=== PATIENT | female | born 1945 | race African-American/Black ===

== ENCOUNTER 2023-03-31 17:10 | Emergency (ER) | payer MEDICARE, SELFPAY ==
--- NOTE | ~2023-03-31 | XR_ITS ---
EXAMINATION: XR ankle RT min 3V DATE: 03/31/2023 17:35 INDICATION: Right ankle pain post fall TECHNIQUE: Anteroposterior, oblique, mortise, and lateral views of the right ankle were obtained. COMPARISON: None. FINDINGS: Old healed fractures of the distal metadiaphyses of the right tibia and fibula which are fixed with p osterior plate and screw fixations. Additional interfragmentary screw at the fibular fracture. There is an additional retained screw fragment at the tibial plafond. Subtle linear lucency consistent with an acute nondisplaced fracture of the metaphyseal region of the distal fibula. No other fractures id entified. 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 Soft tissue swelling about the ankle most prominent laterally. IMPRESSION: 1. Acute appearing nondisplaced fractures of the metaphyseal region of the distal right fibula. Speci ficity is limited by the pre-existing internal fixation of prior old healed tibial and fibular metadi aphyseal fractures. Correlate for point tenderness on the lateral margin of the distal fibula approxi mately 4 similar proximal to the tip of the lateral malleolus. 2. 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 Reviewed, dictated and finalized at location A. IMPRESSION: 1. Acute appearing nondisplaced fractures of the metaphyseal region of the dist al right fibula. Specificity is limited by the pre-existing internal fixation o f prior old healed tibial and fibular metadiaphyseal fractures. Correlate for p oint tenderness on the lateral margin of the distal fibula approximately 4 esther lar proximal to the tip of the lateral malleolus. 2. 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
[2023-03-31 17:25] VITALS: BP 124/77; PULSE 69; RESP 20; TEMP 36.9; O2SAT 96
--- NOTE | 2023-03-31 19:53 | ED.GENADULT ---
HPI - General Adult General Chief complaint: Extremity Injury, Lower Stated complaint: right ankle Time Seen by Provider: 03/31/23 18:56 History of Present Illness HPI narrative: Patient is a 77-year-old female who presents ER with right ankle pain. She was transferring from the toilet to her wheelchair when she twisted her ankle. Sudden onset pain over the lateral right ankle. She has history of previous fracture to the area with known hardware. She did not fall. No numbness or tingling. Has pain with trying to bear weight. Patient has chronic right-sided weakness from previous stroke. Review of Systems Musculoskeletal: Musculoskeletal: Reports arthralgias, Reports joint swelling and Denies muscle cramps Integumentary/Breasts: Skin/Breast: Denies erythema and Denies rash Neurologic: Denies focal weakness and Denies numbness PMFSH Past Medical History Medical History (Updated 03/31/23 @ 19:59 by Fortino De Dios MD) Diabetes History of CVA (cerebrovascular accident) Hyperlipidemia Hypertension Surgical History Surgical History (Updated 03/31/23 @ 19:54 by Fortino De Dios MD) History of ankle surgery Exam Narrative: GENERAL: Well-appearing, well-nourished, and in no acute distress. HEAD: Normocephalic, atraumatic. CHEST: Clear to auscultation. No respiratory distress. HEART: Regular rate and rhythm. Normal peripheral pulses. EXTREMITIES: Normal range of motion. No edema. Tender to palpation right lateral malleolus proximal to the ankle. SKIN: Warm, dry, no rash. NEURO: Alert and oriented x3. PSYCH: Normal mood and affect. Course Course Emergency Course: Area of tenderness consistent with area of potential fracture on x-ray. Patient and son informed of diagnosis and treatment plan. Patient placed in a stirrup splint and will be toe-touch weightbearing. Interesting patient will mainly be confined to a wheelchair. Vital Signs Vital signs: Vital Signs Temperature 98.5 F 03/31/23 17:25 Pulse Rate 69 03/31/23 17:25 Respiratory Rate 20 03/31/23 17:25 Blood Pressure 124/77 03/31/23 17:25 Pulse Oximetry 96 03/31/23 17:25 Temperature 98.5 F 03/31/23 17:25 Pulse Rate 69 03/31/23 17:25 Respiratory Rate 20 03/31/23 17:25 Blood Pressure 124/77 03/31/23 17:25 Pulse Oximetry 96 03/31/23 17:25 Medical Decision Making Vital Signs Vital Signs: Vital Signs Temperature 98.5 F 03/31/23 17:25 Pulse Rate 69 03/31/23 17:25 Respiratory Rate 20 03/31/23 17:25 Blood Pressure 124/77 03/31/23 17:25 Pulse Oximetry 96 03/31/23 17:25 Temperature 98.5 F 03/31/23 17:25 Pulse Rate 69 03/31/23 17:25 Respiratory Rate 20 03/31/23 17:25 Blood Pressure 124/77 03/31/23 17:25 Pulse Oximetry 96 03/31/23 17:25 Imaging Data Radiologist's impression: ITS Impressions Ankle X-Ray 03/31/23 18:08 IMPRESSION: 1. Acute appearing nondisplaced fractures of the metaphyseal region of the distal right fibula. Specificity is limited by the pre-existing internal fixation of prior old healed tibial and fibular metadiaphyseal fractures. Correlate for point tenderness on the lateral margin of the distal fibula approximately 4 similar proximal to the tip of the lateral malleolus. 2. 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 Discharge Plan Discharge Clinical Impression: Ankle fracture Patient Disposition: Home, Self-Care Condition: Stable Instructions: Ankle Fracture (ED) Additional Instructions: Return the ER if you suffer new injury, you have increased pain, you have additional concerns. Follow-up/Referrals: PHYSICIAN,LANGUAGE PATH [Primary Care Provider] - Lester Howell MD [Physician] - 1 Week
[2023-03-31 20:44] VITALS: BP 121/74; PULSE 71; RESP 16; O2SAT 99
== END 2023-03-31 20:45 | disposition home or self-care (01) ==
PROVIDERS: Emergency Provider Emergency Medicine
DX: S82.831A Other fracture of upper and lower end of right fibula, initial encounter for closed fracture (principal); X50.0XXA Overexertion from strenuous movement or load, initial encounter; E11.9 Type 2 diabetes mellitus without complications; I10 Essential (primary) hypertension; E78.5 Hyperlipidemia, unspecified
CPT/HCPCS: 29515; 73610; 99284

== ENCOUNTER 2023-07-28 09:31 | Outpatient (CLI) | payer MEDICARE, SELFPAY ==
[2023-07-28 19:18] LABS: Alanine Aminotransferase 27 U/L (6-35); Albumin Level 4.4 g/dL (3.5-5.1); Alkaline Phosphatase 72 U/L (38-126); Anion Gap 9 mmol/L (8-16); Aspartate Amino Transferase 36 U/L (14-36); Bilirubin,Total 0.3 mg/dL (0.2-1.3); Blood Urea Nitrogen 35 mg/dL (7-17); Calcium 9.8 mg/dL (8.4-10.2); Carbon Dioxide 24 mmol/L (22-30); Chloride 104 mmol/L (98-107); Cholesterol 177 mg/dL (0-200); Estimated Glomerular Filt Rate 38; Glucose 164 mg/dL (65-110); HDL Direct 64 mg/dL; Potassium 4.3 mmol/L (3.4-5.0); Sodium 137 mmol/L (137-145); Triglycerides 72 mg/dL (<150)
[2023-07-28 19:24] LABS: Basophils Absolute Auto 0.1 K/mm3 (0.0-0.1); Basophils Percent Auto 0.6 % (0.2-1.2); Eosinophils Absolute Auto 0.1 K/mm3 (0-0.3); Hematocrit 36.6 % (37.0-47.0); Hemoglobin 11.5 g/dL (12.0-15.0); Immature Granulocyte Absolute 0.02 K/mm3 (0.00-0.031); Immature Granulocyte Percent A 0.2 % (0-0.5); Lymphocytes Percent Auto 39.8 % (18.3-44.2); Mean Corpuscular HGB Conc 31.4 g/dl (32-36); Mean Corpuscular Hemoglobin 26.6 pg (26-34); Mean Corpuscular Volume 84.5 fl (80-100); Mean Platelet Volume 10.9 fl (7.4-10.4); Monocytes Absolute Auto 0.6 K/mm3 (0.1-0.6); Monocytes Percent Auto 6.4 % (2.6-8.5); Neutrophils Absolute Auto 4.6 K/mm3 (1.3-6.7); Platelet Count Result 222 k/mm3 (150-375); Red Blood Count 4.33 M/mm3 (4.2-5.4); Red Cell Distribution Width 14.9 % (11.5-14.5); White Blood Count 8.8 K/mm3 (4.5-10.0)
[2023-07-28 19:28] LABS: LDL Cholesterol Direct 68 mg/dL
[2023-07-28 19:49] LABS: Thyroid Stimulating Hormone 0.506 uIU/mL (0.465-4.680)
== END 2023-07-28 09:32 | disposition home or self-care (01) ==
PROVIDERS: PCP Family Medicine; Visit Provider Nurse Practitioner Family
DX: I10 Essential (primary) hypertension (principal); Z13.29 Encounter for screening for other suspected endocrine disorder; Z13.220 Encounter for screening for lipoid disorders; Z13.1 Encounter for screening for diabetes mellitus; Z13.21 Encounter for screening for nutritional disorder
CPT/HCPCS: 36415; 80053; 80061; 83036; 84443; 85025

== ENCOUNTER 2023-12-08 15:16 | Outpatient (CLI) | payer MEDICARE, SELFPAY ==
--- NOTE | ~2023-12-08 | MM_ITS ---
EXAMINATION: MM screening benjamin BI w javier HISTORY: Screening mammogram TECHNIQUE: Craniocaudal and mediolateral oblique 3-D tomosynthesis images were obtained and synthetic 2-D images were generated. CAD analysis was submitted and interpreted. COMPARISON: No prior mammogram is available for comparison at this institution. BREAST PARENCHYMAL COMPOSITION: There are scattered areas of fibroglandular density. FINDINGS: RIGHT BREAST: No suspicious mass, calcification, or architectural distortion are identified to sugges t malignancy. LEFT BREAST: There is a possible mass in the middle third of the outer breast 8 cm from the nipple. IMPRESSION: 1. Possible left breast mass which may represent the patient's baseline however no comparison is curr ently available. 2. Comparison with prior mammograms is necessary. BI-RADS Category 0: Incomplete: Needs comparison with prior mammograms. Reviewed, dictated and finalized at location A. DAY BABYSITTER IMPRESSION: 1. Possible left breast mass which may represent the patient's baseline however no comparison is currently available. 2. Comparison with prior mammograms is necessary. BI-RADS Category 0: Incomplete: Needs comparison with prior mammograms.
== END 2023-12-08 15:17 | disposition home or self-care (01) ==
PROVIDERS: PCP Family Medicine; Visit Provider Nurse Practitioner Family
DX: Z12.31 Encounter for screening mammogram for malignant neoplasm of breast (principal); R92.8 Other abnormal and inconclusive findings on diagnostic imaging of breast
CPT/HCPCS: 77063; 77067

== ENCOUNTER 2024-02-02 11:03 | Outpatient (CLI) | payer MEDICARE, SELFPAY ==
[2024-02-02 12:54] LABS: Basophils Percent Auto 0.5 % (0.2-1.2); Eosinophils Absolute Auto 0.1 K/mm3 (0-0.3); Eosinophils Percent Auto 0.9 % (0-4.4); Hematocrit 37.4 % (37.0-47.0); Hemoglobin 11.6 g/dL (12.0-15.0); Immature Granulocyte Absolute 0.01 K/mm3 (0.00-0.031); Immature Granulocyte Percent A 0.1 % (0-0.5); Lymphocytes Absolute Auto 3.16 K/mm3 (0.9-3.2); Lymphocytes Percent Auto 41.3 % (18.3-44.2); Mean Corpuscular Hemoglobin 26.2 pg (26-34); Mean Corpuscular Volume 84.4 fl (80-100); Mean Platelet Volume 11.5 fl (7.4-10.4); Monocytes Absolute Auto 0.4 K/mm3 (0.1-0.6); Monocytes Percent Auto 5.4 % (2.6-8.5); Neutrophils Percent Auto 51.8 % (45.5-73.1); Platelet Count Result 191 k/mm3 (150-375); Red Blood Count 4.43 M/mm3 (4.2-5.4); Red Cell Distribution Width 14.1 % (11.5-14.5); White Blood Count 7.7 K/mm3 (4.5-10.0)
[2024-02-02 13:08] LABS: Alanine Aminotransferase 24 U/L (6-35); Albumin Level 4.2 g/dL (3.5-5.1); Alkaline Phosphatase 81 U/L (38-126); Anion Gap 6 mmol/L (8-16); Aspartate Amino Transferase 36 U/L (14-36); Bilirubin,Total 0.3 mg/dL (0.2-1.3); Blood Urea Nitrogen 24 mg/dL (7-17); Calcium 9.8 mg/dL (8.4-10.2); Carbon Dioxide 24 mmol/L (22-30); Chloride 107 mmol/L (98-107); Estimated Glomerular Filt Rate 48; Glucose 162 mg/dL (65-110); Sodium 137 mmol/L (137-145)
[2024-02-02 13:44] LABS: Vitamin D 25 Hydroxy 41.4 ng/mL
[2024-02-05 23:15] LABS: Vitamin D 1,25 (OH)2 Total 21 pg/mL (18-72); Vitamin D2 1,25 (OH)2 21 pg/mL; Vitamin D3 1,25 (OH)2 <8 pg/mL
== END 2024-02-02 11:04 | disposition home or self-care (01) ==
LOC: ANHGOSHLAB 11:04
PROVIDERS: Nurse Practitioner Family; PCP Family Medicine; Visit Provider Nurse Practitioner Family
DX: R79.89 Other specified abnormal findings of blood chemistry (principal); Z13.21 Encounter for screening for nutritional disorder; E55.9 Vitamin D deficiency, unspecified; I10 Essential (primary) hypertension
CPT/HCPCS: 36415; 80053; 82306; 82652; 83036; 85025

== ENCOUNTER 2024-08-04 11:26 | Outpatient (CLI) | payer MEDICARE, SELFPAY ==
[2024-08-04 18:51] LABS: Basophils Absolute Auto 0.1 K/mm3 (0.0-0.1); Basophils Percent Auto 0.6 % (0.2-1.2); Eosinophils Absolute Auto 0.1 K/mm3 (0-0.3); Eosinophils Percent Auto 1.6 % (0-4.4); Hemoglobin 11.4 g/dL (12.0-15.0); Immature Granulocyte Absolute 0.01 K/mm3 (0.00-0.031); Immature Granulocyte Percent A 0.1 % (0-0.5); Lymphocytes Absolute Auto 4.07 K/mm3 (0.9-3.2); Lymphocytes Percent Auto 49.9 % (18.3-44.2); Mean Corpuscular HGB Conc 31.7 g/dl (32-36); Mean Corpuscular Hemoglobin 26.9 pg (26-34); Mean Corpuscular Volume 84.9 fl (80-100); Mean Platelet Volume 10.9 fl (7.4-10.4); Monocytes Absolute Auto 0.4 K/mm3 (0.1-0.6); Monocytes Percent Auto 5.3 % (2.6-8.5); Neutrophils Absolute Auto 3.5 K/mm3 (1.3-6.7); Neutrophils Percent Auto 42.5 % (45.5-73.1); Platelet Count Result 206 k/mm3 (150-375); Red Blood Count 4.24 M/mm3 (4.2-5.4); Red Cell Distribution Width 14.8 % (11.5-14.5); White Blood Count 8.2 K/mm3 (4.5-10.0)
[2024-08-04 20:09] LABS: Alanine Aminotransferase 26 U/L (6-35); Alkaline Phosphatase 73 U/L (38-126); Anion Gap 11 mmol/L (4-12); Aspartate Amino Transferase 36 U/L (14-36); Bilirubin,Total 0.2 mg/dL (0.2-1.3); Blood Urea Nitrogen 22 mg/dL (7-17); Calcium 9.3 mg/dL (8.4-10.2); Carbon Dioxide 22 mmol/L (22-30); Chloride 105 mmol/L (98-107); Cholesterol 204 mg/dL (0-200); Estimated Glomerular Filt Rate 48; Glucose 144 mg/dL (65-110); HDL Direct 71 mg/dL; Sodium 138 mmol/L (137-145); Triglycerides 101 mg/dL (<150)
[2024-08-04 20:26] LABS: LDL Cholesterol Direct 83 mg/dL
[2024-08-04 20:35] LABS: Hemoglobin A1C 7.6 % (<5.7)
== END 2024-08-04 11:27 | disposition home or self-care (01) ==
LOC: ANHGOSHLAB 11:27
PROVIDERS: PCP Family Medicine; Visit Provider Nurse Practitioner Family
DX: E11.9 Type 2 diabetes mellitus without complications (principal); I10 Essential (primary) hypertension; E78.5 Hyperlipidemia, unspecified; Z00.00 Encounter for general adult medical examination without abnormal findings
CPT/HCPCS: 36415; 80053; 80061; 83036; 84443; 85025

== ENCOUNTER 2025-05-19 23:45 | Emergency (ER) | payer MEDICARE, SELFPAY ==
--- NOTE | ~2025-05-19 | CT_ITS ---
CLINICAL INDICATION: Right lower quadrant pain COMPARISON: None. TECHNIQUE: Multiple contiguous axial images of the abdomen and pelvis were performed following the ad ministration of with 100 mL Omnipaque-350 intravenous contrast The dose-length product (DLP) was 821.44 mGy-cm. Automated exposure control and iterative reconstruction technique were employed. FINDINGS/OBSERVATIONS: Visualized lower thorax: The bilateral lung bases are clear. The heart is of normal size, without pericardial effusion. Small hiatal hernia is present. Liver: Well-circumscribed, fluid attenuation focus within segment 2 of the liver measuring 3.7 x 3.1 x 4.4 cm, likely a cyst. The remainder of the liver demonstrates otherwise homogeneous enhancement and is not enlarged. Gallbladder and biliary system: The gallbladder is only minimally distended, and otherwise unremarkable. Pancreas: The pancreas enhances homogeneously without ductal dilatation. Spleen: The spleen enhances homogeneously and is not enlarged. Kidneys: The bilateral kidneys enhance symmetrically without hydronephrosis or renal calculi. Adrenal glands: Unremarkable. Gastrointestinal tract: Fecal stasis within the colon. Fecal stasis within the rectum with mural thickening suggesting fecal impaction. Appendix: The air-filled appendix is of normal caliber (axial series, images 95 through 106) Vasculature: Calcified atherosclerotic disease.. Lymph nodes: No pathologically enlarged or morphologically suspicious lymph nodes within the retroperitoneum or at the root of the mesentery. Pelvic structures: The bladder is minimally distended, and otherwise unremarkable. The uterus is anteverted, anteflexed, nodular and markedly enlarged for a patient of this age. Scattered calcifications are also noted suggesting prior fibroid disease. The bilateral ovaries are not definitively visualized. Body wall and musculoskeletal: Small fat-containing umbilical hernia. No significant degenerative disease within the lower thoracic or lumbosacral spine. IMPRESSION: Normal appendix. Marked enlargement (for patient of this age) of the nodular uterus with scattered calcifications sugg esting prior fibroid disease. Additional findings suggesting fecal impaction, as detailed above. Reviewed, dictated and finalized at location A. IMPRESSION: Normal appendix. Marked enlargement (for patient of this age) of the nodular uterus with scatter ed calcifications suggesting prior fibroid disease. Additional findings suggesting fecal impaction, as detailed above.
--- OUTSIDE RECORDS SUMMARY | 2025-05-19 23:47 | XMS_ITS | Continuity of Care Document ---
Author Organization [facility] Address [address] [place] [address] Phone Care Team Providers Care Plant Maintenance Mechanic Name Role Phone Kishore Ayala DDS Unavailable Unavailable Medications Medication Instructions Dosage Effective Dates (start - stop) Status Comments clindamycin 150 mg Cap take 1 Capsule by Oral route 4 times every day with meals 1.00 Capsule - Active Tylenol-Codeine #3 300 mg-30 mg Tab take 1 tablet by ORAL route every 4 hours for pain 1.00 tablet - Active Procedures Procedure Date Periapical first film Limit oral eval problem focused 010 Surgical extr erupted tooth Advance Directives Directive Yes / No Effective Date File Name No Information Encounters Encounter Description Practice Location Reason(s) For Visit Diagnoses Date Provider Providers Copied on Encounter [facility] , [address], [place], [place], [id number], [place] tel:[phone] [facility] No Information Jamie Novak. [address], [place], [place], [address], [place]. tel:[phone] Family History Family Member Type Diagnosis Age At Onset No Information Payers Payer name Insurance type Covered constitution party ID Authoryinga tijustin(s) D Medicaid - Dental CI [id number] Social History Type Description Quantity Date Captured Comments Sex Female Smoking Status No Information Chief Complaint And Reason For Visit No Information Reason For Referral Reason For Referral No Information History Of Present Illness Encounter Date Complaint History Of Prese nt Illness No Information Functional Status Date Functional Assessmen t No Information Instructions Date Instruction Additional Infor mation No Information Assessments Type Assessment Date No Information Patient Care Teams Name Effective Dates (start - stop) Status Members No Information
--- OUTSIDE RECORDS SUMMARY | 2025-05-19 23:47 | XMS_ITS | Clinical Summary ---
Author Organization [facility] Address [address] [place] [address] Care Team Providers Care Head Control Clerk Name Role Phone Todd Fink MD Unavailable Unavailable Pcp, [facility] Im- Primary Care Provider Unavailable Tejas Maradiaga MD Unavailable [phone] Source Comments [facility],non-owned Affiliates and Associated Physician Practices is amultiple site organization consisting of ambulatory clinics and hospital sitesin [place], [place], [place] and [place]. This disclosure is being madepursuant to the Care Everywhere program and may not contain all information available regarding this patient. Last updated 18.[facility] Allergies No known active allergies Medications * Be aware that medications may not be up to date on this document. Alwaysverify current medications with the patient. hydrOXYzine pamoate (VISTARIL) 25 MG capsule TAKE 1 TO 2 CAPSULES BY MOUTH EVERY 6 HOUR (S) NEEDED 120 Cap 0 4 Active cetirizine (ZYRTEC) 10 MG tablet Take 1 Tab by mouth once daily as needed for Runny Nose or Allergies. 30 Tab 1 5 Active Blood Glucose Monitoring Suppl (ONE TOUCH ULTRA 2) W/DEVICE KIT 5 Active nortriptyline (PAMELOR) 10 MG capsule Take 1 Cap by mouth at bedtime 30 Cap 5 5 Active acetaminophen (TYLENOL) 500 MG capsule Take 1 capsule by mouth every 4 hours as needed for Fever or Pain 8 Active Blood Glucose Monitoring Suppl (ONETOUCH VERIO) W/DEVICE KIT Use 1 Each as directed 1 kit 8 Active STIMULANT LAXATIVE 5 MG tablet TAKE 2 TABLETS BY MOUTH EVERY 8 HOURS NEEDED FOR CONSTIPATION 60 tablet 8 Active blood glucose (ONETOUCH VERIO) test strip Use once daily DX:E11.22 100 strip 2 9 Active Lancets (BrightEdgeTOUCH DELICA PLUS 33G EXTRA FINE LANCET) Use to test once daily. 100 Each 2 9 Active gabapentin (NEURONTIN) 100 MG capsule TAKE 3 CAPSULES BY MOUTH AT BEDTIME 540 capsule 1 0 Active aspirin EC (ECOTRIN) 81 MG tablet Take 1 tablet by mouth once daily 90 tablet 1 0 Active fluticasone propionate (FLONASE) 50 MCG/ACT nasal spray Point Comfort 1 spray into each nostril once daily 48 g 1 1 Active Blood Glucose Monitoring Suppl (BrightEdgeTOUCH ULTRALINK) w/Device KIT Use 1 Each as directed 1 kit 1 Active diclofenac sodium (Voltaren) 1 % gel Apply 2 (two) g to affected area 4 times daily 2 gm amount for elbow, wrist or hand 4 gm amount for knee, ankle or foot 150 g 5 2 Active tiZANidine (Zanaflex) 4 MG tablet TAKE ONE TABLET BY MOUTH UP TO EVERY 8 HOURS NEEDED SPASMS 270 tablet 3 Active omeprazole (PriLOSEC) 20 MG capsule TAKE 1 CAPSULE BY MOUTH ONCE DAILY EVERY MORNING BEFORE MEALS 90 capsule 1 3 Active vitamin D, ergocalciferol, (Drisdol) 1.25 MG (82597 UT) capsule TAKE 1 (ONE) CAPSULE BY MOUTH EVERY 7 DAYS 12 capsule 1 3 Active lisinopril-hydr oCHLOROthiazide (Prinzide; Zestoretic) 10-12.5 MG tablet TAKE ONE TABLET BY MOUTH ONCE DAILY FOR BLOOD PRESSURE EVERY MORNING 90 tablet 3 Active glipiZIDE (Glucotrol) 5 MG tablet TAKE ONE TABLET BY MOUTH ONCE DAILY EVERY MORNING WITH FOOD DIRECTED 90 tablet 3 Active pravastatin (Pravachol) 40 MG tablet TAKE ONE TABLET BY MOUTH EVERY DAY AT BEDTIME DIRECTED 90 tablet 3 Active Active Problems Problem Noted Date Diagnosed Date Primary osteoarthritis involving multiple joints 03/13/2021 Elevated d-dimer 08/05/2018 Chest pain 08/05/2018 DJD (degenerative joint disease) 12/14/2014 Overview (12/14/2014): Shoulder, knees CKD (chronic kidney disease) stage 3, GFR 30-59 ml/min 12/14/2014 Overview (08/05/2018): GFRs<60 since 2013 Tibia/fibula fracture 04/21/2014 Overview (04/21/2014): S/p ORIF 12/10/13 [facility] Hypertension with CKD 3 02/15/2014 Type 2 diabetes mellitus wit h stage 3 chronic kidney disease 02/15/2014 Left hemiparesis 02/15/2014 Overview (05/05/2014): 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 Intolerant to lipitor. Trial pravachol 04/2014 Immunizations Immunization Administration Dates Next Due COVID PFIZER BIVALENT 12Y+ 30mcg/0.3ML Covid Pfizer primary Monoval ent 12+ yr 0.3ml 05/02/2022 Covid Pfizer primary monoval ent 12+ yr 0.3mL Purple cap 02/14/2021,01/23/2021 INFLUENZA VACCINE 09/02/2016 INFLUENZA VACCINE, ADJUVANTE D, QUADR. (FLUAD QUADRIVALENT; 65Y+) (AIIV4) 11/14/2022 INFLUENZA VACCINE, CELL CULT URE, QUADR. (FLUCELVAX QUADRIVALENT; 6MO+) (CCIIV4) 09/26/2021 INFLUENZA VACCINE, HIGH-DOSE , QUADR. (FLUZONE HIGH-DOSE QUADRIVALENT; 65Y+), 0.7 ML (HD-IIV4) 09/02/2016 INFLUENZA VACCINE, QUADR. (F LUZONE; FLULAVAL; FLUARIX; AFLURIA QUADRIVALENT; 6MO+), 0.5 ML (IIV4) 12/08/2015 PNEUMOCOCCAL PPSV23 05/05/2014 Pneumococcal Pcv13 Conj 04/18/2016 TDAP (7yrs+) 01/03/2017 iNFLUENZA VACCINE, RECOM-LAIRD, QUADR. (FLUBLOCK QUADRIVALENT; 18Y+) (RIV4) 09/12/2020,09/15/2019,08/12/2018 Family History Medical History Relation Name Comments Diabetes Brother 1 Diabetes Brother 2 Diabetes Brother 3 Diabetes Brother 4 Hypertension Brother 5 Cancer Father lung, smoker Hypertension Father Arthritis Mother Diabetes Mother Hypertension Mother Diabetes Sister 1 Hypertension Sister 2 Relation Name Status Comments Brother 1 Brother 2 Brother 3 Brother 4 Brother 5 Father Mother Sister 1 Sister 2 Social History Tobacco Use Types Packs/Day Years Used Date Smoking Tobacco: Never Smokeless Tobacco: Never Tobacco Cessation:Counseling Given: Yes Alcohol Use Standard Drinks/Week Comments No 0 (1 standard drink = 0.6 oz pur e alcohol) PHQ-2 Answer Date Recorded PHQ2 TOTAL SCORE 0 11/14/2022 Comments No Sex and Gender Information Value Date Recorded Sex Assigned at Not on file Legal Sex Female 7:13 AM MEAT COOLER Gender Identity Not on file Sexual Orientation Not on file Last Filed Vital Signs Vital Sign Reading Time Taken Comments Blood Pressure 122/80 11/14/2022 10:45 AM MEAT COOLER Pulse 75 11/14/2022 10:45 AM MEAT COOLER Temperature 37.1 C (98.8 F) 11/14/2022 10:45 AM MEAT COOLER Respiratory Rate 16 11/07/2020 1:03 PM MEAT COOLER Oxygen Saturation 98% 11/14/2022 10:45 AM MEAT COOLER Inhaled Oxygen Concentration - - Weight 74 kg (163 lb 3.2 oz) 11/14/2022 10:45 AM MEAT COOLER Height 152.4 cm (5') 11/14/2022 10:45 AM MEAT COOLER Body Mass Index 31.87 11/14/2022 10:45 AM MEAT COOLER Plan of Treatment Health Maintenance Due Date Last Done Comments ZOSTER VACCINE (1 of 2) 1993 Respiratory Syncytial Virus (RSV) Vaccine Pt: or over 60 yrs (1 - 1-dose 75+ series) 2018 DIABETES-FOOT EXAM WITH MONOFILAMENT 04/17/2019 04/17/2018, 04/17/2018, 05/05/2014 DIABETES RETINOPATHY SCREENING 08/12/2020 08/12/2018, 10/22/2017, 10/22/2017 (Done Outside Per Report), Additional history exists DIABETES-HGB A1C 05/15/2023 11/14/2022, , 09/26/2021, Additional history exists DIABETES-SERUM CREATININE 11/14/20232021, 09/26/2021, 09/12/2020, Additional history exists COVID-19 VACCINE ( season) 2024 11/14/2022, 05/02/2022, 02/14/2021, Additional history exists DEPRESSION SCREENING 11/17/2024 05/02/2022 DIABETES - URINE PROTEIN SCREENING 11/17/2024 09/02/2016, 07/28/2015, 02/14/2014 MEDICARE AWV CALENDAR YEAR 2024 05/02/2022, 09/26/2021, 03/13/2021, Additional history exists INFLUENZA VACCINE (Season Ended) 2025 11/14/2022, 09/26/2021, 09/12/2020, Additional history exists DTAP/TDAP/TD VACCINES (2 - Td or Tdap) 01/03/2027 01/03/2017 BONE DENSITY TESTING Completed 04/17/2015 PNEUMOCOCCAL VACCINE 50+ Completed 04/18/2016, 04/17 HEPATITIS B VACCINE Aged Out No longe r eligible based on patient's age to complete this topic HIB VACCINE Aged Out No longer eligi ble based on patient's age to complete this topic HPV VACCINE Aged Out No longer eligi ble based on patient's age to complete this topic MENINGOCOCCAL (Group B) VACCINE SHARED DECISION-MAKING Aged Out No longer eligible based on patient's age to complete this topic MENINGOCOCCAL GROUPS A/C/Y/W VACCINE Aged Out No longer eligible based on patient's age to complete this topic Goals Goal Patient Goal Type Associated Problems Recent Progress Patient-Stated? Author Lack of transportation Barrier No Patricia Fox RN Mulitple chronic diseases Barrier No Patricia Fox RN Needs assistance with ADL's Barrier No Patricia Fox RN Blood Pressure < 150/90 Blood Pressure 122/80(11/14 10:45 AM MEAT COOLER) No Nidhi Hernandez MA Right level of care at the right time. General On track(2017 10:15 AM CDT) Yes Patricia Fox RN Note: Silvia to call the doctor if she has an increased temperature (greater than 101), unrelieved pain, symptoms that are not relieved or worsening, and side effects of medications. Progress toward goal attainment: 0% : Ongoing / No progress Barriers to goal attainment: HEMOGLOBIN A1C < 7.0 Result Component 7.2(02/15/20 14 9:36 AM CDT) Nidhi Lerma MA Strength - Stable Housing Strength No Valencia Soriano RN Able to maintain independent living Strength No Valencia Soriano RN Strength - Transportation Strength No Valencia Soriano RN Symptoms do not interfere with function Strength No Valencia Soriano RN Health Literacy Strength No Valencia Soriano RN Medical Devices Implanted Type Area Board Layer Device Identifier Shelf Expiration Date Model / Serial / Lot Implt Lens Akreos 21.0 - [id number] Implanted:Qty: 1 on 06/30/2014 by Todd Fink MD at [facility] Right: Eye [employer] 04/16/2016 AO60G 21.0 / [id number] / [id number] Implt Lens Akreos 22.0 - [id number] Implanted:Qty: 1 on 08/18/2014 by Todd Fink MD at [facility] Left: Eye [employer] 04/16/2017 AO60G 22.0 / [id number] / Procedures Procedure Name Priority Date/Time Associated Diagnosis Comments COMPREHENSIVE METABOLIC PANEL Routine 11/14/2022 11:38 AM MEAT COOLER Mixed hyperlipidemia HEMOGLOBIN A1C - POINT OF CARE (AMB) Routine 11/14/2022 11:01 AM MEAT COOLER Type 2 diabetes mellitus with stage 3a chronic kidney disease, without long-term current use of insulin HM DIABETES EYE EXAM Routine 08/12/2018 MICROALB/CREAT RATIO URINE RANDOM PANEL Routine 09/02/2016 12:08 PM CDT Type 2 diabetes mellitus with stage 3 chronic kidney disease, without long-term current use of insulin DEXA BONE DENSITY 2 SITES Routine 04/17/2015 9:48 AM CDT Screening for osteoporosis from Last 3 Months or Most Recently Relevant to Health Maintenance Results * (ABNORMAL) COMPREHENSIVE METABOLIC PANEL (11/14/2022 11:38 AM MEAT COOLER) Glucose 120(H) 70 - 105 mg/dL [facility] ACCOUNT BILL BUN 27(H) 9.8 - 20.1 mg/dL [facility] ACCOUNT BILL Creatinine 1.35(H) 0.57 - 1.11 mg/dL [facility] ACCOUNT BILL eGFR by CKD-EPI 40(L) >=90 mL/min/1.7 3 m2 [facility] ACCOUNT BILL Sodium 139 136 - 145 mmol/L [facility] ACCOUNT BILL Potassium 4.0 3.5 - 5.1 mmol/L [facility] ACCOUNT BILL Chloride 105 98 - 107 mmol/L [facility] ACCOUNT BILL CO2 22(L) 23 - 31 mmol/L [facility] ACCOUNT BILL Calcium 10.0 8.4 - 10.4 mg/dL [facility] ACCOUNT BILL Protein Total 7.6 6.4 - 8.3 gm/dL [facility] ACCOUNT BILL Albumin 4.0 3.2 - 4.6 gm/dL [facility] ACCOUNT BILL Bilirubin Total 0.3 0.2 - 1.2 mg/dL [facility] ACCOUNT BILL Alkaline Phosphatase 81 40 - 150 U/L [facility] ACCOUNT BILL AST 17 5 - 34 U/L [facility] ACCOUNT BILL ALT 20 0 - 61 U/L [facility] ACCOUNT BILL Blood BLOOD SPECIMEN / Unknown 11/14/2022 11:38 AM MEAT COOLER 11/14/2022 Narrative Resulting Agency Comment Lab Testing performed at: [facility] [address] [place] [id number] Kayden Barry MD LAB - CHEMISTRY ORDERABLES Final Result [facility] ACCOUNT BILL [address] [place] [address] * HEMOGLOBIN A1C - POINT OF CARE (HgbA1C) (11/14/2022 11:01 AM MEAT COOLER) Pathologist [facility] Hemoglobin A1c POCT 7.3 % [facility] Expiration Date 09/02/[address] [facility] Lot # [id number] [facility] QC Verified Yes Yes [facility] Blood BLOOD SPECIMEN / Unknown 11/14/2022 11:01 AM MEAT COOLER Kayden Barry MD LAB - POINT OF CARE ORDERABLES F inal Result [facility] [address] [place] [address], [facility] [phone] * DIABETES EYE EXAM (08/12/2018) us Provider Unknown HEALTH MAINTENANCE Final Result * MICROALB/CREAT RATIO URINE RANDOM PANEL (09/02/2016 12:08 PM CDT) Creatinine Urine 145.4 Not Estab. mg/dL [facility] ACCOUNT BILL Microalbumin Urine 12.4 Not Estab. ug/mL [facility] ACCOUNT BILL Microalbumin/Crea tinine Ratio 8.5 0.0 - 30.0 mg/g creat [facility] ACCOUNT BILL Urine URINE SPECIMEN OBTAINED BY CLEAN CATCH PROCEDURE / Unknown 09/02/2016 12:08 PM CDT 09/02/2016 8:22 PM CDT Narrative Resulting Agency Comment [facility] [address] [phone] Kayden Barry MD LAB - URINE CHEMISTRY ORDERABLES Final Result Performing Organization Address City/[facility]/ZIP Co de Phone Number [facility] ACCOUNT BILL [address] [place] [address] * DEXA BONE DENSITY 2 SITES (04/17/2015 9:48 AM CDT) Anatomical Region Laterality Modality Nuclear Medicine 04/17/2015 9:48 AM CDT Narrative 04/17/2015 10:10 AM CDT BONE DENSITY STUDY History: Screening for osteoporosis. There is normal bone density in the lumbar spine and left hip. There is osteopenia of the right hip with a T score value of 1.5 standard deviations below normal. DIAGNOSIS: Osteopenia. Edited by Maria D Ashley on 04/17/2015 10:01 AM Procedure Note Last Farley MD - 04/17/2015 BONE DENSITY STUDY History: Screening for osteoporosis. There is normal bone density in the lumbar spine and left hip. There is osteopenia of the right hip with a T score value of 1.5 standard deviations below normal. DIAGNOSIS: Osteopenia. Edited by Maria D Ashley on 04/17/2015 10:01 AM Annel Parker MD DEXA ORDERABLES Final Result from Last 3 Months or Most Recently Relevant to Health Maintenance Insurance [address] [facility] [address] MANAGED MEDICARE ADV [address] [facility] [address] MANAGED MEDICARE ADV MEDICAID LIMITED BENEFIT - [place] Advance Directives Documents on File Type Date Recorded Patient Continuity Tester Expl anation Adv Directive/Living Will/POA 10/29/2019 3:27 PM POWER OF HEAD SHIPPER Adv Directive/Living Will/POA 10/29/2018 2:19 PM POWER OF HEAD SHIPPER Care Teams Head Control Clerk Relationship Specialty Start Date End Date Pcp, [facility]- PCP - General 06/13/23 Tejas Maradiaga MD [address] [place] [address] [address] [place] [id number] PCP - Attributed-[facility] P4P 04/17/25 Todd Fink MD Ophthalmology 08/03/14
[2025-05-19 23:48] VITALS: BP 107/51; PULSE 52; RESP 20; TEMP 36.3; O2SAT 98
--- NOTE | 2025-05-20 03:32 | ED.ABDPAIN ---
HPI - Abdominal Pain General Chief Complaint: Abdominal Pain Stated Complaint: abd pain Time Seen by Provider: 05/20/25 03:26 History of Present Illness HPI narrative: 79-year-old female with a past medical history including hypertension, diabetes, prior stroke and restless leg syndrome. She presents to the emergency department with right lower quadrant abdominal pain that was onset this afternoon. She states she was not doing anything particular exertional stressful as she started getting pain in her right abdomen that comes and goes. No associated difficulty in the restroom such as dysuria, hematuria, hematochezia, melena. No fever chills but she has vomited twice at home according to family members. No history of an abdominal surgeries. No trauma or injury. No recent medication changes. Related Data Allergies Allergy/AdvReac Type Severity Reaction Status Date / Time No Known Allergies Allergy Unverified 05/19/25 23:52 Review of Systems Review of Systems: As [facility] Past Medical History Medical History Arthralgia of hands, bilateral Type 2 diabetes mellitus with diabetic neuropathy Muscle spasm GERD (gastroesophageal reflux disease) Restless leg syndrome Hyperlipidemia Diabetes Hypertension History of CVA (cerebrovascular accident) Surgical History Surgical History History of ankle surgery Family History Family History Father Alcohol abuse Malignant neoplasm of prostate Mother Diabetes mellitus Social History Social History Smoking status: Never smoker Alcohol intake: never Exam Narrative: GENERAL: [Well-appearing, well-nourished, and in no acute distress.] HEAD: [Normocephalic, atraumatic.] EYES: [PERRLA and EOMI.] ENT: Nares clear, no rhinorrhea or epistaxis. Mucous membranes moist. NECK: Supple. CHEST: [Clear to auscultation. No respiratory distress.] HEART: [Regular rate and rhythm]. No murmur heard. [Normal peripheral pulses.] ABDOMEN: [Soft, nondistended], tender to palpation the right lower quadrant without any guarding or rebound, no peritonitis EXTREMITIES: Normal range of motion. [No edema.] SKIN: Warm, dry, no rash. NEURO: [No focal deficits]. Alert and oriented [x3.] PSYCH: [Normal mood and affect.] Course Vital Signs Vital signs: Vital Signs Temperature 36.3 C L 05/19/25 23:48 Pulse Rate 52 L 05/19/25 23:48 Respiratory Rate 20 05/19/25 23:48 Blood Pressure 107/51 L 05/19/25 23:48 Pulse Oximetry 98 05/19/25 23:48 Oxygen Delivery Room Air 05/19/25 23:48 Temperature 36.3 C L 05/19/25 23:48 Pulse Rate 87 05/20/25 06:00 Respiratory Rate 14 05/20/25 06:00 Blood Pressure 144/68 H 05/20/25 06:00 Pulse Oximetry 98 05/20/25 06:00 Oxygen Delivery Room Air 05/19/25 23:48 MDM - Abdominal Pain MDM Narrative Medical decision making narrative: 79-year-old female with a past medical history including hypertension, diabetes, prior stroke and restless leg syndrome. She presents to the emergency depart with right lower quadrant abdominal pain that was onset this afternoon. She states she was not doing anything particular exertional stressful as she started getting pain in her right abdomen that comes and goes. No associated difficulty in the restroom such as dysuria, hematuria, hematochezia, melena. No fever chills but she has vomited twice at home according to family members. No history of an abdominal surgeries. No trauma or injury. No recent medication changes. Patient is not any acute distress, tender in the right lower quadrant on palpation, afebrile. Differential includes gastroenteritis, diverticulitis, abdominal abscess, pancreatitis, appendicitis, cholecystitis. CT scan with abdomen pelvis protocol and contrast was ordered and she was given Compazine and fluids. CBC, CMP, urinalysis and lipase obtained. Workup shows minor leukocytosis of 11.7, platelets 195, hemoglobin 11.1 and stable. Electrolytes largely unrevealing, BUN and creatinine around baseline kidney function. Mildly elevated glucose 293. Normal LFTs. Normal lipase. Urinalysis without signs of infection. CT scan report shows normal appendix, no signs of a bowel obstruction, no other acute findings. Patient's pain is under controlled and her symptoms are improved with treatment here. She can be safely discharged home at this time with prescriptions for Bentyl and Zofran for continued symptom control at home and referred back to her primary care provider for outpatient follow-up and re-evaluation. Patient's family was given return precautions and discharge instructions. Medical Records Attestation: I reviewed the patient's medical records. Lab Data Attestation: I reviewed the patient's lab results. 05/20/25 03:42 05/20/25 03:42 Labs: Lab Results 05/20/25 05/20/25 Range/Units 03:42 05:37 WBC 11.7 H (4.5-10.0) K/mm3 RBC 4.17 L (4.2-5.4) M/mm3 Hgb 11.1 L (12.0-15.0) g/dL Hct 35.3 L (37.0-47.0) % MCV 84.7 (80-100) fl MCH 26.6 (26-34) pg MCHC 31.4 L (32-36) g/dl RDW 14.5 (11.5-14.5) % Plt Count 195 (150-375) k/mm3 MPV 10.5 H (7.4-10.4) fl Immature Gran % (Auto) 0.3 (0-0.5) % Neut % (Auto) 74.7 H (45.5-73.1) % Lymph % (Auto) 20.5 (18.3-44.2) % [place] % (Auto) 4.1 (2.6-8.5) % Eos % (Auto) 0.1 (0-4.4) % Baso % (Auto) 0.3 (0.2-1.2) % Lymph # (Auto) 2.40 (0.9-3.2) K/mm3 [place] # (Auto) 0.5 (0.1-0.6) K/mm3 Eos # (Auto) 0.0 (0-0.3) K/mm3 Baso # (Auto) 0.0 (0.0-0.1) K/mm3 Abs Immat Gran (auto) 0.04 H (0.00-0.031) K/mm3 Absolute Neuts (auto) 8.8 H (1.3-6.7) K/mm3 Absolute Nucleated RBC 0.000 (0.0-0.012) K/mm3 Nucleated RBC % 0.0 (0.0-0.2) % Sodium 134 L (137-145) mmol/L Potassium 4.2 (3.4-5.0) mmol/L Chloride 105 (98-107) mmol/L Carbon Dioxide 20 L (22-30) mmol/L Anion Gap 9 (4-12) mmol/L BUN 30 H (7-17) mg/dL Creatinine 1.56 H (0.7-1.0) mg/dL Estim Creat Clear Calc 23 ml/min Estimated GFR 32 L (59 - ) Glucose 239 H (65-110) mg/dL Calcium 9.0 (8.4-10.2) mg/dL Total Bilirubin 0.2 (0.2-1.3) mg/dL AST 31 (14-36) U/L ALT 32 (6-35) U/L Alkaline Phosphatase 73 (38-126) U/L Total Protein 7.3 (6.3-8.2) g/dL Albumin 3.9 (3.5-5.1) g/dL Lipase 94 (23-300) U/L Urine Color Yellow (Yellow) Urine Appearance Clear (Clear) Urine pH 5.0 (5.0-9.0) Ur Specific [place] 1.033 (1.001-1.035) Urine Protein Negative (Negative) mg/dL Urine Glucose (UA) 2+ H (Negative) mg/dL Urine Ketones Trace H (Negative) mg/dL Ur Blood (Man) Negative (Negative) Urine Nitrate Negative (Negative) Urine Bilirubin Negative (Negative) Urine Urobilinogen 0.2 (<2.0) mg/dL Leukocyte Esterase Rfl Negative (Negative) PILAR/UL Imaging Data Attestation: I personally reviewed and interpreted this imaging study as follows: My impression: No acute abnormalities Discharge Plan Discharge Clinical Impression: Abdominal pain, acute, right lower quadrant, Gastroenteritis Patient Disposition: Home Condition: Stable Instructions: Antibiotic Form, Abdominal Pain (ED) Additional Instructions: CT scan shows no acute abnormalities or findings, normal appendix, no signs of bowel obstruction, no kidney stones. Laboratory studies did not show any significant abnormalities from her baseline labs. Possibility of some gastroenteritis or stomach bug causing her symptoms. Most likely viral in nature as there is no signs of bacterial infection. Will treat this with a combination of pain control medications and nausea control medications. Follow-up with regular doctor and return to the ER with any worsening or new symptoms or emergent concerns. Patient Language: Puerto Rican Prescriptions: New dicyclomine 20 mg tablet 20 mg PO TID PRN (Reason: abdominal pain) Qty: 20 0RF ondansetron 4 mg tablet,disintegrating 4 mg PO Q8H PRN (Reason: nausea and vomiting) Qty: 20 0RF No Action diclofenac sodium 1 % gel 2 g topical QID Qty: 100 1RF Rx Instructions: apply to single elbow, wrist or hand; for hand includes palm/fingers/back of hand hydroxyzine pamoate 25 mg capsule 25 mg PO QHS Qty: 30 1RF Rx Instructions: take 1-2 capsules every 6 hours as needed omeprazole 20 mg capsule,delayed release(DR/EC) 20 mg PO DAILY Qty: 90 2RF nortriptyline 10 mg capsule 10 mg PO QHS Qty: 90 1RF Rx Instructions: take 1 capsule at bedtime (DME) Continuous Glucose monitor See Rx Instructions .Route .MEDSUPPLY Qty: 1 6RF Rx Instructions: Needs sensors, reader and all supplies including alcohol wipes. (DME) blood-glucose,transportation engineer,cont Misc See Rx Instructions .Route Qty: 1 0RF Rx Instructions: As directed (DME) Dexcom G7 Sensor Device See Rx Instructions .Route Qty: 6 1RF Rx Instructions: As directed meloxicam 15 mg tablet 15 mg PO DAILY Qty: 90 0RF polyethylene glycol 3350 [Miralax] 17 gram powder in packet 17 g PO BID Qty: 100 2RF Januvia 50 mg tablet 50 mg PO DAILY Qty: 90 0RF lisinopril-hydrochlorothiazide 10-12.5 mg tablet 1 tablet PO DAILY Qty: 90 1RF Rx Instructions: take one by mouth every morning for blood pressure glipizide 5 mg tablet 5 mg PO DAILY Qty: 90 1RF Rx Instructions: take one tablet by mouth every morning with food pravastatin 40 mg tablet 40 mg PO QHS Qty: 90 1RF Rx Instructions: take 1 tablet every night night before bed tizanidine 4 mg tablet 4 mg PO QHS PRN (Reason: muscle spasticity) Qty: 30 2RF Rx Instructions: take 1 cap by mouth every 8 hours for muscle spams if needed Follow-up/Referrals: Natalee Stock MD [Primary Care Provider] - Time of Disposition: 06:37
--- OUTSIDE RECORDS SUMMARY | 2025-05-20 03:42 | XMS_ITS | Clinical Summary ---
Author Organization [facility] Address [address] [place] [address] Care Team Providers Care Tank Car Inspector Name Role Phone Todd Fink MD Unavailable Unavailable Pcp, [facility]- Primary Care Provider Unavailable Tejas Maradiaga MD Unavailable [phone] Source Comments [facility],non-owned Affiliates and Associated Physician Practices is amultiple site organization consisting of ambulatory clinics and hospital sitesin [place], [place], [place] and [place]. This disclosure is being madepursuant to the Care Everywhere program and may not contain all information available regarding this patient. Last updated 18.[facility] Allergies No known active allergies Medications * [...] DX:E11.22 100 strip 2 9 Active Lancets (AcsendoTOUCH DELICA PLUS 33G EXTRA FINE LANCET) Use to test once daily. 100 Each 2 9 Active gabapentin (NEURONTIN) 100 MG capsule TAKE 3 CAPSULES BY MOUTH AT BEDTIME 540 capsule 1 0 Active aspirin EC (ECOTRIN) 81 MG tablet Take 1 tablet by mouth once daily 90 tablet 1 0 Active fluticasone propionate (FLONASE) 50 MCG/ACT nasal spray [place] 1 spray into each nostril once daily 48 g 1 1 Active Blood Glucose Monitoring Suppl (AcsendoTOUCH ULTRALINK) w/Device KIT Use 1 Each as [...] Active vitamin D, ergocalciferol, (Drisdol) 1.25 MG (13476 UT) capsule TAKE 1 (ONE) CAPSULE BY [...] 04/21/2014 Overview (04/21/2014): S/p ORIF 12/10/13 [facility] Hypertension with CKD 3 02/15/2014 Type 2 [...] on file Legal Sex Female 7:13 AM [facility] Gender Identity Not on file Sexual Orientation Not on file Last Filed Vital Signs Vital Sign Reading Time Taken Comments Blood Pressure 122/80 11/14/2022 10:45 AM [facility] Pulse 75 11/14/2022 10:45 AM [facility] Temperature 37.1 C (98.8 F) 11/14/2022 10:45 AM [facility] Respiratory Rate 16 11/07/2020 1:03 PM [facility] Oxygen Saturation 98% 11/14/2022 10:45 AM [facility] Inhaled Oxygen Concentration - - Weight 74 kg (163 lb 3.2 oz) 11/14/2022 10:45 AM [facility] Height 152.4 cm (5') 11/14/2022 10:45 AM [facility] Body Mass Index 31.87 11/14/2022 10:45 AM [facility] Plan of Treatment Health Maintenance Due Date [...] < 150/90 Blood Pressure 122/80(11/14 10:45 AM [facility]) No Nidhi Hernandez MA Right level of [...] Soriano RN Medical Devices Implanted Type Area Field Counsel Device Identifier Shelf Expiration Date Model / Serial / Lot Implt Lens Akreos 21.0 - [id number] Implanted:Qty: 1 on 06/30/2014 by Todd Fink MD at [facility] Right: Eye [employer] 04/16/2016 AO60G 21.0 / [id number] / [id number] Implt Lens Akreos 22.0 - [id number] Implanted:Qty: 1 on 08/18/2014 by Todd Fink MD at [facility] Left: Eye [employer] 04/16/2017 AO60G 22.0 / [id number] / Procedures Procedure Name Priority Date/Time Associated Diagnosis Comments COMPREHENSIVE METABOLIC PANEL Routine 11/14/2022 11:38 AM [facility] Mixed hyperlipidemia HEMOGLOBIN A1C - POINT OF CARE (AMB) Routine 11/14/2022 11:01 AM [facility] Type 2 diabetes mellitus with stage 3a [...] (ABNORMAL) COMPREHENSIVE METABOLIC PANEL (11/14/2022 11:38 AM [facility]) Glucose 120(H) 70 - 105 mg/dL [facility] [...] BLOOD SPECIMEN / Unknown 11/14/2022 11:38 AM [facility] 11/14/2022 Narrative Resulting Agency Comment Lab Testing performed at: [facility] [address] [place] [address] [phone] Kayden Barry MD LAB - CHEMISTRY ORDERABLES Final Result [facility] ACCOUNT BILL [address] [place] [address] * HEMOGLOBIN A1C - POINT OF CARE (HgbA1C) (11/14/2022 11:01 AM [facility]) Pathologist [facility] Hemoglobin A1c POCT 7.3 % [facility] Expiration Date 09/02/[address] [facility] Lot # [id number] [facility] QC Verified Yes Yes [facility] Blood BLOOD SPECIMEN / Unknown 11/14/2022 11:01 AM [facility] Kayden Barry MD LAB - POINT OF CARE ORDERABLES F inal Result [facility] [address] [place] [address], [facility] [phone] * DIABETES EYE EXAM (08/12/2018) us Provider [...] PM CDT Narrative Resulting Agency Comment [facility] [address] [facility] [phone] Kayden Barry MD LAB - URINE CHEMISTRY ORDERABLES Final Result Performing Organization Address City/[facility]/ZIP Co de Phone Number [facility] ACCOUNT BILL [address] [place] [address] * DEXA BONE DENSITY 2 SITES (04/17/2015 [...] Recently Relevant to Health Maintenance Insurance [address] [facility] [address] MANAGED MEDICARE ADV [address] [facility] [address] MANAGED MEDICARE ADV MEDICAID LIMITED BENEFIT - [place] Advance Directives Documents on File Type Date Recorded Patient Drug Abuse Technician Expl anation Adv Directive/Living Will/POA 10/29/2019 3:27 PM 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
--- OUTSIDE RECORDS SUMMARY | 2025-05-20 03:42 | XMS_ITS | Continuity of Care Document ---
Author Organization [facility] Address [address] [place] [address] Phone Care Team Providers Care Communications Engineer Name Role Phone Kishore Ayala DDS Unavailable [...] Diagnoses Date Provider Providers Copied on Encounter [facility] , [address], [place], [place], [id number], [place] tel:[phone] [facility] No Information Jamie Novak. [address], [place], [place], [id number], [place]. tel:[phone] Family History Family Member Type Diagnosis Age At Onset No Information Payers Payer name Insurance type Covered alliance party ID Authoryinga tijustin(s) D Medicaid - Dental CI [id number] Social History Type Description Quantity Date Captured [...]
[2025-05-20 04:00] VITALS: BP 146/68; PULSE 75; RESP 13; O2SAT 99
[2025-05-20 04:01] LABS: Hematocrit 35.3 % (37.0-47.0); Hemoglobin 11.1 g/dL (12.0-15.0); Immature Granulocyte Percent A 0.3 % (0-0.5); Lymphocytes Absolute Auto 2.40 K/mm3 (0.9-3.2); Mean Corpuscular HGB Conc 31.4 g/dl (32-36); Mean Corpuscular Hemoglobin 26.6 pg (26-34); Mean Corpuscular Volume 84.7 fl (80-100); Nucleated Red Blood Cells Absolute Auto 0.000 K/mm3 (0.0-0.012); Nucleated Red Blood Cells Perc 0.0 % (0.0-0.2); Platelet Count Result 195 k/mm3 (150-375); Red Blood Count 4.17 M/mm3 (4.2-5.4); White Blood Count 11.7 K/mm3 (4.5-10.0)
[2025-05-20] MEDS: PROCHLORPERAZINE EDISYLATE 10 MG/2 ML VIAL 5 MG IV PUSH (04:09)
[2025-05-20] MEDS: SODIUM CHLORIDE 0.9% IV 1,000 ML 999 ML IV CONT (04:09)
[2025-05-20 04:24] LABS: Alanine Aminotransferase 32 U/L (6-35); Albumin Level 3.9 g/dL (3.5-5.1); Alkaline Phosphatase 73 U/L (38-126); Anion Gap 9 mmol/L (4-12); Aspartate Amino Transferase 31 U/L (14-36); Bilirubin,Total 0.2 mg/dL (0.2-1.3); Blood Urea Nitrogen 30 mg/dL (7-17); Calcium 9.0 mg/dL (8.4-10.2); Carbon Dioxide 20 mmol/L (22-30); Chloride 105 mmol/L (98-107); Estimated CRCL calculation 23 ml/min; Estimated Glomerular Filt Rate 32; Glucose 239 mg/dL (65-110); Lipase 94 U/L (23-300); Potassium 4.2 mmol/L (3.4-5.0); Sodium 134 mmol/L (137-145); Total Protein 7.3 g/dL (6.3-8.2)
[2025-05-20] MEDS: HYDROmorphone HCL INJ (*CRX) 2 MG/ML VIAL 0.5 MG IV PUSH (04:25)
[2025-05-20 05:00] VITALS: BP 137/68; PULSE 88; RESP 17; O2SAT 99
[2025-05-20 05:48] LABS: Add Urine Microscopic? NO; Appearance Urine Clear (Clear); Glucose Urine UA 2+ mg/dL (Negative); Leukocyte Esterase Ur Negative LEU/UL (Negative); Nitrate Urine Negative (Negative); Specific Grav Ur 1.033 (1.001-1.035)
[2025-05-20 06:00] VITALS: BP 144/68; PULSE 87; RESP 14; O2SAT 98
== END 2025-05-20 07:00 | disposition home or self-care (01) ==
PROVIDERS: Emergency Provider Student in an Organized Health Care Education/Training Program; PCP Family Medicine
DX: K52.9 Noninfective gastroenteritis and colitis, unspecified (principal); R10.31 Right lower quadrant pain; I10 Essential (primary) hypertension; E11.40 Type 2 diabetes mellitus with diabetic neuropathy, unspecified; E78.5 Hyperlipidemia, unspecified; K21.9 Gastro-esophageal reflux disease without esophagitis; G25.81 Restless legs syndrome; Z86.73 Personal history of transient ischemic attack (TIA), and cerebral infarction without residual deficits; Z79.84 Long term (current) use of oral hypoglycemic drugs; Z79.899 Other long term (current) drug therapy
CPT/HCPCS: 36415; 74177; 80053; 81003; 83690; 85025; 96361; 96374; 96375; 99284; J0780; J1171; J7030; Q9967